=== PATIENT | female | born 2005 ===

== ENCOUNTER 2025-01-09 12:31 | Emergency (ER) | payer SELFPAY ==
[~2025-01-09] VITALS: Ht 157.5 cm; Wt 124.7 kg
[2025-01-09 12:42] VITALS: BP 122/78; PULSE 98; RESP 16; TEMP 97.9; O2SAT 98
--- NOTE | 2025-01-09 12:47 | NUR ---
PT SPOUSE UPSET BECAUSE THE HOSP[facility] DOES NOT HAVE [facility], HE STATED ANGRILY THAT NOBODY IS DOING ANYTHING FOR HIS WHEN I WENT IN TO ASSESS PT
--- NOTE | 2025-01-09 12:50 | NUR ---
PT LEFT ER W/O TELLING ANYONE APPROX 1250
== END 2025-01-09 13:24 | disposition left against medical advice (07) ==
LOC: EDH 12:31
DX: O26.891 Other specified pregnancy related conditions, first trimester (principal); R10.30 Lower abdominal pain, unspecified; Z3A.01 Less than 8 weeks gestation of pregnancy; Z53.21 Procedure and treatment not carried out due to patient leaving prior to being seen by health care provider
CPT/HCPCS: 99281